=== PATIENT | female | born 1985 | race Caucasian/White ===

== ENCOUNTER 2017-03-08 08:57 | Emergency (ER) | payer SELFPAY ==
[~2017-03-08] VITALS: Ht 162.6 cm; Wt 84.0 kg
[~2017-03-08 08:57] MED LIST: ALBUTEROL S2.5 MG/.5 INH; ALBUTEROL2.5 MG/3 M IN; AMOXICILLIN500 MG OR; AMOXICILLIN500 MG PO; AMOXICILLIN875 MG OR; AMOXIL500 MG OR; BACTRIM DS1 TAB OR; CIPRO500 MG PO; CIPROFLOXACN500 MG PO; CYMBALTA60 MG PO; DIFLUCAN150 MG OR; FLAGYL500 MG OR; FLEXERIL OR; FLEXERIL5 MG PO; HYDROCO/APAP1 TA9 PO; KEFLEX500 MG PO; KETOROLAC60 MG/2 ML IJ; KLONOPIN0.5 MG PO; LORTAB 5 OR; LORTAB 5 PO; LORTAB 7.5 OR; LORTAB5 PO; Levaquin PO; MAALOX/BEN PO; MEDDOSEPAK OR; MEDDOSEPAK PO; MIRENA; MOTRIN800 MG OR; NAPROSYN500 MG OR; NAPROSYN500 MG PO; NO; NO HOME MEDS; NORCO1 TAB PO; OB COMPLET2 PO; OMEPRAZOLE40 MG PO; PENICILLN VK500 MG OR; PHENERGAN25 MG/ML IJ; PROZAC20 M1 PO; PYRIDIUM200 MG PO; TORADOL IM; TORADOL OR; TRAMADOL HCL50 MG PO; TRIAMIN26 OR; TUMS500 MG OR; ULTRAM50 MG OR; VENTOLIN HF1 IN; VITAMIN C500 M1 OR; ZITHROMAX250 MG OR; ZITHROMAX250 MG PO; ZOFRAN ODT4 MG PO; ZOFRAN ODT8 MG OR; [UNRECOGNIZED DRUG - OTHER]; [UNRECOGNIZED DRUG - OTHER] PO
[2017-03-08 09:35] LABS: HEMATOCRIT 38.1 % (37.0-47.0); HEMOGLOBIN 12.2 g/dl (12.0-16.0); IMMATURE GRANULOCYTES 0.7 % (0.0-1.0); MEAN CELL VOLUME 83.4 fL CALC (80.0-100.0); MEAN CORPUSCULAR HGB 26.7 pG CALC (26.0-32.0); NEUT# 13.51 thou/uL (2.00-7.15); RED BLOOD COUNT 4.57 mill/uL (4.20-5.60); RED CELL DISTRI WIDTH 14.3 % (11.5-15.5)
[2017-03-08 09:46] LABS: ALKALINE PHOSPHATASE 95 u/l (38-126); AMYLASE 42 u/l (30-110); ANION GAP 14 (6-22 (CALC)); BILIRUBIN, TOTAL 0.4 mg/dL (0.0-1.4); BUN 16 mg/dL (7-17); BUN/CREATININE RATIO 32 (12-20 (CALC)); CALCIUM 8.9 mg/dL (8.4-10.2); CARBON DIOXIDE 28 mmol/l (22-30); CHLORIDE 102 mmol/l (95-108); CREATININE 0.5 mg/dL (0.5-1.0); GFR > 60 ML/MIN (>=60 (CALC)); GFR FOR AFR.AMER. > 60 ML/MIN (>=60 (CALC)); GLUCOSE 105 mg/dL (65-105); LIPASE 79 u/l (23-300); POTASSIUM 4.2 mmol/l (3.5-5.1); SGOT/AST 13 u/l (14-36); SGPT/ALT 29 u/l (9-52); SODIUM 140 mmol/l (137-146); TOTAL PROTEIN 6.8 g/dL (6.3-8.2)
[2017-03-08 09:57] LABS: URINE BILIRUBIN - DIPSTICK NEGATIVE (NEGATIVE); URINE BLOOD DIPSTICK LARGE (NEGATIVE); URINE COLOR YELLOW; URINE GLUCOSE - DIPSTICK NEGATIVE (NEGATIVE); URINE KETONE NEGATIVE (NEGATIVE); URINE LEUK ESTERASE NEGATIVE (NEGATIVE); URINE NITRITE - DIPSTICK NEGATIVE (Negative); URINE PH 7.5 (4.5-8.0); URINE PROTEIN - DIPSTICK NEGATIVE (NEG-TRACE); URINE UROBILINOGEN - DIPSTICK 0.2 E.U./dL (0.2)
[2017-03-08 10:20] LABS: URINE CLARITY HAZY
[2017-03-08 10:21] LABS: URINE RBC 25-50 RBC/hpf (0-5); URINE SQUAMOUS EPITHELIAL CELL FEW EPI/hpf (0-FEW)
[2017-03-08] MEDS ORDERED: NORCO1 TA1 PO (12:10)
[2017-03-08 12:34] VITALS: BP 101/66
== END 2017-03-08 12:28 | disposition home or self-care (01) | DRG 694 ==
LOC: ED 08:57
PROVIDERS: Emergency Medicine
DX: N20.0 Calculus of kidney (principal)
CPT/HCPCS: Q9967

== ENCOUNTER 2017-06-16 19:32 | Emergency (ER) | payer SELFPAY ==
[~2017-06-16] VITALS: Ht 162.6 cm; Wt 81.0 kg
[~2017-06-16 19:32] MED LIST changes: +NORCO1 TA1 PO
[2017-06-16] MEDS ORDERED: LORTAB 1010 MG PO (20:36)
[2017-06-16 20:38] VITALS: BP 120/85
== END 2017-06-16 20:40 | disposition home or self-care (01) | DRG 605 ==
LOC: ED 19:32
DX: S20.211A Contusion of right front wall of thorax, initial encounter (principal); W01.0XXA Fall on same level from slipping, tripping and stumbling without subsequent striking against object, initial encounter; Y93.01 Activity, walking, marching and hiking; Y92.009 Unspecified place in unspecified non-institutional (private) residence as the place of occurrence of the external cause

== ENCOUNTER 2018-09-28 03:54 | Emergency (ER) | payer SELFPAY ==
[~2018-09-28] VITALS: Ht 162.6 cm; Wt 91.0 kg
[~2018-09-28 03:54] MED LIST changes: +LORTAB 1010 MG PO
[2018-09-28 06:09] VITALS: BP 136/75
== END 2018-09-28 06:10 | disposition home or self-care (01) | DRG 605 ==
LOC: ED 03:54
PROC: 0HQ1XZZ Repair Face Skin, External Approach (ICD-10-PCS; principal; 2018-09-28)
DX: S01.81XA Laceration without foreign body of other part of head, initial encounter (principal); S09.90XA Unspecified injury of head, initial encounter; W01.198A Fall on same level from slipping, tripping and stumbling with subsequent striking against other object, initial encounter; Y93.01 Activity, walking, marching and hiking; Y92.009 Unspecified place in unspecified non-institutional (private) residence as the place of occurrence of the external cause